=== PATIENT | male | born 1960 | race Caucasian/White ===

== ENCOUNTER → 2016-11-03 | Outpatient (CLI) | payer OTHER ==
--- NOTE | 2016-11-03 16:19 | DX ---
PA and lateral chest x-ray 1551 hours. History: Hypoxia with shortness of breath and cough. Findings: Comparison to March 09, 2014. Heart size remains within normal limits. Pulmonary vasculature is mildly prominent centrally similar to the prior study. Sternotomy wires are noted along with numerous surgical clips over the mediastinu m. Mild peribronchial cuffing is present in the perihilar region bilaterally. There is no consolidati on, effusion, or pneumothorax. Osseous structures are unchanged. Impression: 1. Peribronchial cuffing in the perihilar region with some prominence of perihilar interstitial russell ngs. Findings are nonspecific but can be seen with bronchitis, viral process, or reactive airways dis ease. 2. Changes related to previous open heart surgery.
== END ==
LOC: BMCIMAGING 15:53
PROVIDERS: ATTEND Internal Medicine Interventional Cardiology
DX: R06.02 Shortness of breath (principal); R09.02 Hypoxemia; R05 Cough; R91.8 Other nonspecific abnormal finding of lung field; Z95.1 Presence of aortocoronary bypass graft

== ENCOUNTER → 2017-03-11 | Day surgery (SDC) | payer OTHER | END | disposition home or self-care (01) | LOC: BMCIMAGING 08:26 | PROVIDERS: ATTEND Urology | PROC: 0VB03ZX Excision of Prostate, Percutaneous Approach, Diagnostic (ICD-10-PCS; principal; 2017-03-11) | DX: R97.20 Elevated prostate specific antigen [PSA] (principal) ==

== ENCOUNTER → 2017-03-25 | Outpatient (CLI) | payer OTHER | LOC: FIMAGING 08:14 | PROVIDERS: ATTEND Physician Assistant Medical | DX: K22.4 Dyskinesia of esophagus (principal); M43.12 Spondylolisthesis, cervical region ==

== ENCOUNTER → 2017-10-21 | Outpatient (CLI) | payer OTHER ==
[~2017-10-21] MED LIST: GADOBUTROL 10 ML VIAL IVP ONE
== END ==
LOC: FIMAGING 07:38
PROVIDERS: ATTEND Urology
DX: C61 Malignant neoplasm of prostate (principal)
CPT/HCPCS: A9585

== ENCOUNTER → 2017-12-19 | Outpatient (CLI) | payer OTHER ==
[~2017-12-19] MED LIST changes: -GADOBUTROL 10 ML VIAL IVP ONE; +IOPAMIDOL (ISOVUE-300) 100 ML BTL ONE
== END ==
LOC: FIMAGING 09:09
PROVIDERS: ATTEND Urology
PROC: CP1Z1ZZ Planar Nuclear Medicine Imaging of Musculoskeletal System, All using Technetium 99m (Tc-99m) (ICD-10-PCS; principal; 2017-12-19)
DX: C61 Malignant neoplasm of prostate (principal); M51.36 Other intervertebral disc degeneration, lumbar region
CPT/HCPCS: 74177; 78306; A9503; Q9967

== ENCOUNTER → 2018-10-13 | Outpatient (CLI) | payer OTHER ==
[~2018-10-13] MED LIST changes: +IOPAMIDOL (ISOVUE 370) 100 ML BTL IV ONE; -IOPAMIDOL (ISOVUE-300) 100 ML BTL ONE
== END ==
LOC: FIMAGING 08:58
DX: C61 Malignant neoplasm of prostate (principal)
CPT/HCPCS: 74177; 78306; A9503; Q9967; 82565-PO